=== PATIENT | male | born 1975 | race Caucasian/White ===

== ENCOUNTER 2016-12-08 10:57 | Emergency (ER) | payer OTHER ==
[~2016-12-08] VITALS: Ht 182.9 cm; Wt 68.2 kg
[2016-12-08 11:05] VITALS: BP 131/92; RESP 18; O2SAT 97
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
[2016-12-08 14:53] VITALS: BP 109/72; PULSE 90; RESP 16; O2SAT 97
== END 2016-12-08 15:06 | disposition home or self-care (01) ==
LOC: SED 10:57
DX: J01.90 Acute sinusitis, unspecified (principal)